=== PATIENT | female | born 1995 | race Two or more races ===

== ENCOUNTER 2018-05-15 13:30 | Outpatient (CLI) | payer OTHER | END 2018-05-15 13:38 | disposition home or self-care (01) | LOC: MRI 13:30 | DX: M54.16 Radiculopathy, lumbar region (principal) | CPT/HCPCS: 72148 ==

== ENCOUNTER 2018-05-15 13:40 | Outpatient (CLI) | payer OTHER | END 2018-05-15 15:10 | disposition home or self-care (01) | LOC: RAD 501 13:40 | DX: M41.114 Juvenile idiopathic scoliosis, thoracic region (principal); M54.16 Radiculopathy, lumbar region ==